=== PATIENT | male | born 1990 | race American Indian/Alaskan Native ===

== ENCOUNTER 2021-04-05 14:52 | Inpatient (IN) | payer OTHER ==
[2021-04-05 16:13] VITALS: BMI 18.6
[2021-04-05] MEDS ORDERED: IBUPROFEN 400 MG TABLET (FP) PO PRN (19:07)
[2021-04-05] MEDS ORDERED: ACETAMINOPHEN 325 MG TABLET (FP) PO PRN ×2 (19:07)
[2021-04-05] MEDS ORDERED: methaDONE HCL 10 MG TABLET (FOR DETOX USE ONLY) PO ONE (19:07)
[2021-04-05] MEDS ORDERED: cloNIDine HCL 0.1 MG TABLET PO PRN (19:07)
[2021-04-05] MEDS ORDERED: MAGNESIUM CITRATE 300 ML BOTTLE PO PRN (19:07)
[2021-04-05] MEDS ORDERED: BISMUTH SUBSALICYLATE 524 MG/30 ML PO PRN (19:07)
[2021-04-05] MEDS ORDERED: MENTHOL/PHENOL 1 EACH UD MM PRN (19:07)
[2021-04-05] MEDS ORDERED: ONDANSETRON *ODT* 4 MG TABLET SL PRN (19:07)
[2021-04-05] MEDS ORDERED: MAGNESIUM HYDROX 2400MG/30ML ORAL SUSPENSION 30 ML CUP PO PRN (19:07)
[2021-04-05] MEDS ORDERED: MAG HYDROX/AL HYDROX/SIMETH 30 ML UNIT-DOSE CUP PO PRN (19:07)
[2021-04-05] MEDS ORDERED: MELATONIN 5 MG TABLETS PO PRN (19:07)
[2021-04-05] MEDS: THIAMINE HCL 100 MG TABLET (FP) PO SCH (21:26)
[2021-04-05] MEDS: METHOCARBAMOL 500 MG TABLET PO PRN (21:30)
[2021-04-06] MEDS ORDERED: methaDONE HCL 10 MG TABLET (FOR DETOX USE ONLY) ONE (09:51)
[2021-04-06] MEDS: PRENATAL VITAMINS W/ FOLIC ACID TABLET (FP) PO SCH (10:46)
[2021-04-06] MEDS: METHOCARBAMOL 500 MG TABLET PO PRN ×2 (10:48→22:26)
[2021-04-06] MEDS: NICOTINE 10 MG CARTRIDGE (INHALER) IH PRN (10:49)
[2021-04-06 12:12] LABS: HEMATOCRIT 39.7 % (35.4-49); HEMOGLOBIN 13.6 GM/dL (11.7-16.9); MCH 32.7 pg (25.7-33.7); MCHC 34.3 g/dl (32.0-35.9); MEAN CELL VOLUME 95.3 fl (80-96); MEAN PLT VOLUME 6.7 fl (7.5-11.1); PLATELET COUNT 340 10^3/uL (134-434); RBC 4.17 M/mm3 (4.00-5.60); RDW 13.7 % (11.9-15.9); WHITE BLOOD COUNT 8.6 K/mm3 (4.0-10.0)
[2021-04-06 12:22] LABS: ALBUMIN 3.2 g/dl (3.4-5.0); BLOOD UREA NITROGEN 8.1 mg/dL (7-18); CALCIUM 8.2 mg/dL (8.5-10.1)
[2021-04-06 12:25] LABS: CREATININE 0.7 mg/dL (0.55-1.3)
[2021-04-06 12:26] LABS: BILIRUBIN,TOTAL 0.4 mg/dL (0.2-1)
[2021-04-06 12:27] LABS: TOT PROT 6.3 g/dl (6.4-8.2)
[2021-04-06] MEDS: hydrOXYzine PAMOATE 25 MG CAPSULE (FP) PO PRN (22:26)
[2021-04-06] MEDS: THIAMINE HCL 100 MG TABLET (FP) PO SCH (22:26)
[2021-04-06] MEDS: SUVOREXANT 10 MG TABLET PO PRN (22:26)
[2021-04-07] MEDS ORDERED: methaDONE HCL 10 MG TABLET (FOR DETOX USE ONLY) PO ONE (10:00)
[2021-04-07] MEDS: PRENATAL VITAMINS W/ FOLIC ACID TABLET (FP) PO SCH (10:20)
[2021-04-07] MEDS: NICOTINE 10 MG CARTRIDGE (INHALER) IH PRN ×2 (10:21→22:05)
[2021-04-07] MEDS: hydrOXYzine PAMOATE 25 MG CAPSULE (FP) PO PRN ×2 (10:22→22:03)
[2021-04-07] MEDS: SUVOREXANT 10 MG TABLET PO PRN (22:03)
[2021-04-07] MEDS: METHOCARBAMOL 500 MG TABLET PO PRN (22:03)
[2021-04-07] MEDS: THIAMINE HCL 100 MG TABLET (FP) PO SCH (22:03)
[2021-04-08] MEDS ORDERED: methaDONE HCL 10 MG TABLET (FOR DETOX USE ONLY) ONE (08:42)
[2021-04-08] MEDS: PRENATAL VITAMINS W/ FOLIC ACID TABLET (FP) PO SCH (10:32)
[2021-04-08] MEDS: NICOTINE 10 MG CARTRIDGE (INHALER) IH PRN ×3 (10:36→22:04)
[2021-04-08] MEDS ORDERED: DICYCLOMINE HCL 10 MG CAPSULE PO PRN (11:20)
[2021-04-08] MEDS: hydrOXYzine PAMOATE 25 MG CAPSULE (FP) PO PRN ×2 (14:24→22:04)
[2021-04-08] MEDS: METHOCARBAMOL 500 MG TABLET PO PRN (17:18)
[2021-04-08] MEDS: THIAMINE HCL 100 MG TABLET (FP) PO SCH (22:04)
[2021-04-08] MEDS: SUVOREXANT 10 MG TABLET PO PRN (22:04)
[2021-04-09] MEDS ORDERED: NICOTINE 14 MG/24 HOURS TOPICAL PATCH TD SCH (10:00)
[2021-04-09] MEDS ORDERED: methaDONE HCL 10 MG TABLET (FOR DETOX USE ONLY) PO ONE (10:00)
[2021-04-09] MEDS: PRENATAL VITAMINS W/ FOLIC ACID TABLET (FP) PO SCH (10:14)
[2021-04-09] MEDS: METHOCARBAMOL 500 MG TABLET PO PRN (12:56)
[2021-04-09] MEDS: hydrOXYzine PAMOATE 25 MG CAPSULE (FP) PO PRN (12:56)
[2021-04-09 17:29] VITALS: BP 131/85; PULSE 109; TEMP 96.8
== END 2021-04-09 19:30 | disposition home or self-care (01) | DRG 773 ==
LOC: YASAS 14:52 → Y3N 18:54
PROVIDERS: ADMIT Allergy & Immunology; ATTEND Allergy & Immunology
PROC: HZ2ZZZZ Detoxification Services for Substance Abuse Treatment (ICD-10-PCS; principal; 2021-04-05)
DX: F11.23 Opioid dependence with withdrawal (principal); F14.20 Cocaine dependence, uncomplicated; F12.20 Cannabis dependence, uncomplicated; F13.10 Sedative, hypnotic or anxiolytic abuse, uncomplicated; F17.210 Nicotine dependence, cigarettes, uncomplicated; F90.9 Attention-deficit hyperactivity disorder, unspecified type; F19.282 Other psychoactive substance dependence with psychoactive substance-induced sleep disorder; R76.11 Nonspecific reaction to tuberculin skin test without active tuberculosis; R01.1 Cardiac murmur, unspecified; L90.5 Scar conditions and fibrosis of skin; Z88.8 Allergy status to other drugs, medicaments and biological substances; Z56.0 Unemployment, unspecified
CPT/HCPCS: 36415; 71046-TC-FY; 80053; 85027; 86780; 93005; 93010; C9803; U0003; U0005

== ENCOUNTER 2021-09-02 15:22 | Inpatient (IN) | payer OTHER ==
[2021-09-02] MEDS ORDERED: BISMUTH SUBSALICYLATE 524 MG/30 ML PO PRN (17:49)
[2021-09-02] MEDS ORDERED: IBUPROFEN 400 MG TABLET (FP) PO PRN (17:49)
[2021-09-02] MEDS ORDERED: P-EPHED 60MG/TRIPROLIDI 2.5MG TABLET PO PRN (17:49)
[2021-09-02] MEDS ORDERED: ONDANSETRON *ODT* 4 MG TABLET SL PRN (17:49)
[2021-09-02] MEDS ORDERED: LOPERAMIDE HCL 2 MG CAPSULE PO PRN (17:49)
[2021-09-02] MEDS ORDERED: ACETAMINOPHEN 325 MG TABLET (FP) PO PRN ×2 (17:49)
[2021-09-02] MEDS ORDERED: DICYCLOMINE HCL 10 MG CAPSULE PO PRN (17:49)
[2021-09-02] MEDS ORDERED: MAGNESIUM HYDROX 2400MG/30ML ORAL SUSPENSION 30 ML CUP PO PRN (17:49)
[2021-09-02] MEDS ORDERED: MAGNESIUM CITRATE 300 ML BOTTLE PO PRN (17:49)
[2021-09-02] MEDS ORDERED: MENTHOL/PHENOL 1 EACH UD MM PRN (17:49)
[2021-09-02] MEDS ORDERED: MAG HYDROX/AL HYDROX/SIMETH 30 ML UNIT-DOSE CUP PO PRN (17:49)
[2021-09-02] MEDS ORDERED: cloNIDine HCL 0.1 MG TABLET PO PRN (17:51)
[2021-09-02] MEDS ORDERED: methaDONE HCL 10 MG TABLET (FOR DETOX USE ONLY) PO ONE (17:51)
[2021-09-02 21:02] VITALS: BMI 20.9
[2021-09-02] MEDS ORDERED: methaDONE HCL 10 MG TABLET (FOR DETOX USE ONLY) ONE (21:08)
[2021-09-02] MEDS: THIAMINE HCL 100 MG TABLET (FP) PO SCH (23:16)
[2021-09-02] MEDS: MELATONIN 5 MG TABLETS PO PRN (23:16)
[2021-09-02] MEDS: hydrOXYzine PAMOATE 25 MG CAPSULE (FP) PO PRN (23:17)
[2021-09-02] MEDS: diazePAM 5 MG TABLET PO PRN (23:18)
[2021-09-03] MEDS ORDERED: methaDONE HCL 10 MG TABLET (FOR DETOX USE ONLY) ONE (09:54)
[2021-09-03 10:24] LABS: CALCIUM 8.9 mg/dL (8.5-10.1)
[2021-09-03 10:25] LABS: BLOOD UREA NITROGEN 10.6 mg/dL (7-18)
[2021-09-03 10:26] LABS: HEMATOCRIT 43.8 % (35.4-49); HEMOGLOBIN 15.1 GM/dL (11.7-16.9); MCH 32.7 pg (25.7-33.7); MCHC 34.5 g/dl (32.0-35.9); MEAN CELL VOLUME 94.9 fl (80-96); MEAN PLT VOLUME 6.6 fl (7.5-11.1); PLATELET COUNT 380 10^3/uL (134-434); RBC 4.61 M/mm3 (4.00-5.60); WHITE BLOOD COUNT 7.1 K/mm3 (4.0-10.0)
[2021-09-03 10:28] LABS: CREATININE 0.8 mg/dL (0.55-1.3)
[2021-09-03 10:29] LABS: TOT PROT 7.2 g/dl (6.4-8.2)
[2021-09-03] MEDS: PRENATAL VITAMINS W/ FOLIC ACID TABLET (FP) PO SCH (10:29)
[2021-09-03] MEDS: METHOCARBAMOL 500 MG TABLET PO PRN (10:29)
[2021-09-03] MEDS: diazePAM 5 MG TABLET PO PRN ×4 (10:30→23:01)
[2021-09-03] MEDS: NICOTINE POLACRILEX 2 MG GUM BUC PRN ×2 (10:32→12:56)
[2021-09-03 12:09] LABS: SARS-CoV-2 NAA Not Detected (Not Detected)
[2021-09-03] MEDS: hydrOXYzine PAMOATE 25 MG CAPSULE (FP) PO PRN ×2 (18:29→23:01)
[2021-09-03] MEDS: THIAMINE HCL 100 MG TABLET (FP) PO SCH (23:00)
[2021-09-03] MEDS: MELATONIN 5 MG TABLETS PO PRN (23:01)
[2021-09-04] MEDS ORDERED: methaDONE HCL 10 MG TABLET (FOR DETOX USE ONLY) PO ONE (10:00)
[2021-09-04] MEDS: METHOCARBAMOL 500 MG TABLET PO PRN ×2 (10:09→18:54)
[2021-09-04] MEDS: hydrOXYzine PAMOATE 25 MG CAPSULE (FP) PO PRN ×3 (10:09→22:55)
[2021-09-04] MEDS: PRENATAL VITAMINS W/ FOLIC ACID TABLET (FP) PO SCH (10:09)
[2021-09-04] MEDS: diazePAM 5 MG TABLET PO PRN ×4 (10:12→22:54)
[2021-09-04] MEDS: NICOTINE POLACRILEX 2 MG GUM BUC PRN (14:44)
[2021-09-04] MEDS: THIAMINE HCL 100 MG TABLET (FP) PO SCH (22:54)
[2021-09-04] MEDS: MELATONIN 5 MG TABLETS PO PRN (22:56)
[2021-09-05] MEDS ORDERED: methaDONE HCL 10 MG TABLET (FOR DETOX USE ONLY) ONE (09:01)
[2021-09-05 09:30] VITALS: BP 103/72; PULSE 79; TEMP 98
[2021-09-05 12:44] LABS: BLOOD UREA NITROGEN 13.8 mg/dL (7-18); CALCIUM 9.3 mg/dL (8.5-10.1)
[2021-09-05 12:48] LABS: CREATININE 0.9 mg/dL (0.55-1.3)
[2021-09-06] MEDS ORDERED: methaDONE HCL 10 MG TABLET (FOR DETOX USE ONLY) PO ONE (10:00)
== END 2021-09-05 09:52 | disposition left against medical advice (07) | DRG 770 ==
LOC: YASAS 15:22 → Y6N 21:23
PROVIDERS: ADMIT Allergy & Immunology; ATTEND Allergy & Immunology
PROC: HZ2ZZZZ Detoxification Services for Substance Abuse Treatment (ICD-10-PCS; principal; 2021-09-02)
DX: F11.23 Opioid dependence with withdrawal (principal); F10.20 Alcohol dependence, uncomplicated; F13.20 Sedative, hypnotic or anxiolytic dependence, uncomplicated; F14.20 Cocaine dependence, uncomplicated; F17.210 Nicotine dependence, cigarettes, uncomplicated; F41.9 Anxiety disorder, unspecified; F32.A Depression, unspecified; Z88.8 Allergy status to other drugs, medicaments and biological substances; Z91.013 Allergy to seafood
CPT/HCPCS: 36415; 80048; 80053; 85027; 86780; 87811; C9803-CS; U0003; U0005